=== PATIENT | male | born 1990 | race Caucasian/White ===

== ENCOUNTER → 2017-05-15 | Outpatient (CLI) | payer OTHER ==
[~2017-05-15] MED LIST: OXYC-57 PO
--- NOTE | 2017-05-15 15:19 | DIAGNOSTIC IMAGING REPORT ---
SINUS CT CT DOSE: 237.08 mGycm HISTORY: Sinusitis CHRONIC SINUSITIS TECHNIQUE: Multiaxial CT images of the paranasal sinuses were performed and reformatted in the coronal plane without the use of contrast. COMPARISON: None. FINDINGS: Mild mucosal thickening of the frontal sinuses. Moderate mucosal thickening of the right and to lesser extent left maxillary sinus. Soft tissue occlusion of the ostiomeatal units bilaterally. Sphenoid sinuses are clear. Minimal hypertrophic change of the nasal turbinates. No evidence for bony destructive process. The mastoid air cells are clear. The orbits are unremarkable. IMPRESSION: 1. Moderate mucosal thickening of the maxillary and ethmoid sinuses. 2. Soft tissue occlusion of the ostiomeatal units bilaterally. Electronically signed by: Kike Sage M.D. 05/15/2017 3:18 PM Dictated Date/Time: 05/15/2017 3:16 PM
== END | disposition home or self-care (01) ==
LOC: C.CTS 15:00
PROVIDERS: ATTEND Otolaryngology
DX: J32.9 Chronic sinusitis, unspecified (principal)

== ENCOUNTER → 2017-05-29 | Day surgery (SDC) | payer OTHER ==
[2017-05-27 09:01] VITALS: Ht 177.2 cm; Wt 72.7 kg
--- NOTE | 2017-05-27 09:32 | History and Physical: Surg Cnt ---
History & Physical Date May 27, 2017. Chief Complaint sinus infections History of Present Illness The patient is a 26 year old male with complaints of nasal obstruction and chronic sinusitis Additional History Hepatic Disease: No Endocrine Disorder: No Kidney Disease: No Hypertension: No Heart Disease: No Bleeding Tendencies: No Infectious Diseases: No Allergies Coded Allergies: Peanut (Verified Allergy, Mild, HIVES, 05/27/17) Home Medications No Active Prescriptions or Reported Meds Physical Examination Skin: warm/dry, no rash Eyes: normal inspection, EOMI, sclerae normal ENT: normal ENT inspection, pharynx normal Head: normocephalic, atraumatic Neck: supple, no adenopathy, trachea midline Respiratory/Chest: lungs clear, normal breath sounds, no respiratory distress Cardiovascular: regular rate, rhythm, no edema, no murmur Abdomen / GI: normal bowel sounds, non tender Back: normal inspection Extremities: normal inspection, normal range of motion Neurologic/Psych: no motor/sensory deficits, alert, normal reflexes, oriented x 3 Diagnosis deviated septum, chronic sinusitis Plan of Treatment septoplasty and endoscopic sinus surgery, explained surgery and risks
[~2017-05-29] VITALS: Ht 177.2 cm; Wt 72.7 kg
[~2017-05-29] MED LIST changes: +ATROPINE SULFATE 0.1 MG/ML 5ML SYR IV PRN; +BACITRACIN OINT 15 GM TUBE ONE; +CEFAZOLIN 1000MG/55 ML D5W IV SCH; +DEXAMETHASONE SOD INJ 4 MG/ML VIAL ONE; +EpHEDrine SULFATE INJ 50 MG/ML AMP IV PRN; +EpINEphrine INJ 1MG/ML AMP 1 MG/ML AMP ONE; +FENTANYL CITRATE INJ 50 MCG/1 ML 2 ML VIAL IV PRN; +FENTANYL CITRATE INJ 50 MCG/1 ML 2 ML VIAL ONE; +FLUMAZENIL 0.1 MG/1 ML 10 ML VIAL IV PRN; +GELATIN SPONGE 12-7MM ONE; +LACTATED RINGER'S 1000ML 1,000 ML IV SCH; +LIDO 2%/EPINEPHRINE 1:100000 20 ML VIAL INFIL ONE; +LIDOCAINE 4% MPF SOAK 5 ML = 1 DOSE TOP ONE; +LIDOCAINE HCL 2% 2 ML VIAL (20MG/ML) ONE; +MIDAZOLAM HCL 1 MG/ML 2ML VIAL ONE; +NALOXONE HCL 0.4 MG/1 ML VIAL/CARP IV PRN; +ONDANSETRON INJ 2 MG/ML 2 ML VIAL IV PRN; +ONDANSETRON INJ 2 MG/ML 2 ML VIAL ONE; +OXYCODONE/ACETAMINOPHEN 5-325 TAB PO PRN; +PROMETHAZINE HCL INJ 12.5 MG in SODIUM CHLORIDE 0.9% 50ML 50 ML IV PRN; +PROPOFOL IV EMULSION 10 MG/ML 20 ML VIAL IV ONE; +SODIUM CHLORIDE 0.9% 1000ML 1,000 ML IV SCH
--- NOTE | 2017-05-29 08:39 | History & Physical Bridge Note ---
H&P Re-Evaluation Bridge Note: I have examined the patient, reviewed the History & Physical and in the interval since the performance of the History & Physical I have noted the following changes of clinical significance: No changes noted
--- NOTE | 2017-05-29 08:40 | Discharge Instructions-SurgCtr ---
Discharge Instructions Date of Service May 29, 2017. Visit Reason for Visit: Chronic Sinusitis, Polyposis, Septal Deviation Discharge Discharge Diagnosis / Problem: ABDULKADIR Discharge Goals Goal(s): Improve function, Improve disease control Activity Recommendations Activity Limitations: resume your previous activity Anesthesia . Post Anesthesia Instructions: If you have had General Anesthesia or IV Sedation: * Do not drive today. * Resume driving when surgeon permits. * Do not make important decisions or sign legal documents today. * Call surgeon for: 1. Temperature elevations greater than 101 degrees F. 2. Uncontrollable pain. 3. Excessive bleeding. 4. Persistent nausea and vomiting. 5. Medication intolerance (nausea, vomiting or rash). * For nausea and vomiting use only clear liquids such as: tea, soda, bouillon until nausea subsides, then gradually increase diet as tolerated. * If you have any concerns or questions, call your surgeon's office. If physician is unavailable and it is an emergency, call 911 or go to the nearest emergency room. . Instructions / Follow-Up Instructions / Follow-Up ACTIVITY RECOMMENDATIONS: * Being up and around is good, but no strenuous activity, heavy lifting or physical exertion for one week. * Keep your head elevated 30 degrees when lying down or sleeping. * Do not blow your nose for 48 hours, sniff back instead. * Avoid hot showers. OVER THE COUNTER MEDICATIONS: * You may use Tylenol * Avoid aspirin or aspirin containing products, e.g. as they may increase bleeding. SPECIAL CARE INSTRUCTIONS: * Expect to have bloody drainage from your nose and/or down your throat for one to three days. Change drip pad as needed. * Begin irrigating your nose with saline solution today, at least six to ten times per day and sniff back to help remove old clots or crust. * You may experience nasal and facial congestion, pain and pressure, this is normal. * Please call with any significant and/or progressive pain, redness, swelling around the eyes, visual changes, fever of 101.5 degrees F, active bleeding or any problems or concerns. * If active bleeding occurs, spray the nose three times at one minute intervals with Afrin spray and call or cell phone: . If unable to reach the doctor, go to the nearest Emergency Department. Special Diet: * Avoid extremely hot fluids. FOLLOW UP VISIT: Follow-up Visit with Dr. Naqvi If not already scheduled, please call to schedule. Diet Recommendations Home Diet: no limitations Pending Studies Studies pending at discharge: no Medical Emergencies . Who to Call and When: Medical Emergencies: If at any time you feel your situation is an emergency, please call 911 immediately. . Non-Emergent Contact Non-Emergency issues call your: Primary Care Provider . . "Provider Documentation" section prepared by Sangeetha Naqvi. . [place] Drug Monitoring Program Search Results: no issues identified
--- NOTE | 2017-05-29 11:07 | [facility] Operative Report ---
Operative Report Operative Date May 29, 2017. Pre-Operative Diagnosis Chronic Sinusitis, Polyposis, Septal Deviation Post-Operative Diagnosis same as preop Procedure(s) Performed Septoplasty (Open), Endoscopic Sinus Surgery, Right and Left Frontal, Right and Left Maxillary, Sphenoid, Right and Left Total Ethmoidectomies Surgeon Dr. Naqvi Cross[place] Surgeon(s) none Estimated Blood Loss 50ml Findings polyps Specimens A: Left Ethmoid Polyp Anesthesia GET Complication(s) None Disposition Recovery Room / PACU Implants Propels Indications chronic sinusitis, polyps, septal deviation to left Description of Procedure After GET anesthesia, I decongested with topical xylo/epi, then injected xylocaine with epi., calibrated Brainlab, cannulated sphenoid, maxillary and left frontal sinus and dilated with 6 mm. Acclarent balloon. I left the wire in place as a marker and opened up left nasofrontal duct with shaver coupled with brainlab, then total ethmoidectomy and maxillary antrostomy and sphenoidotomy with shaver. Right frontal sinus was hypoplastic. I performed right total ethmoidectomy and maxillary antrostomy and sphenoidotomy with shaver with brainlab guidance. I placed mini Propel stent in left NF duct and regular stents in both ethmoid cavities. I used 15 blade and Roberto dissector and blakesly to remove bony and cartilaginous spur to left to straighten septum then packed with gelfoam. I attest to the content of the Intraoperative Record and any orders documented therein. Any exceptions are noted below.
--- NOTE | 2017-05-29 12:39 | Anesthesia Progress Nt - [facility] ---
Anesthesia Post Op Note Date & Time May 29, 2017 at 12:38 Vital Signs Pain Intensity: 0 Vital Signs Past 12 Hours Date Time Temp Pulse Resp B/P (MAP) Pulse Ox O2 Delivery O2 Flow Rate FiO2 05/29/17 12:06 36.6 81 16 114/73 (87) 97 Room Air 05/29/17 12:01 36.5 71 16 120/83 100 Room Air 05/29/17 11:58 132/78 05/29/17 11:55 81 18 05/29/17 11:55 79 18 100 05/29/17 11:51 116/93 05/29/17 11:50 74 12 100 05/29/17 11:50 78 12 05/29/17 11:46 127/65 05/29/17 11:45 78 15 100 05/29/17 11:45 78 15 05/29/17 11:41 111/93 05/29/17 11:40 74 6 05/29/17 11:40 76 6 100 05/29/17 11:36 117/79 05/29/17 11:35 85 16 05/29/17 11:35 80 16 100 05/29/17 11:31 117/72 05/29/17 11:30 76 19 05/29/17 11:30 77 19 100 05/29/17 11:29 77 11 05/29/17 11:29 79 11 100 05/29/17 11:26 110/70 05/29/17 11:24 76 14 05/29/17 11:24 76 14 100 05/29/17 11:21 119/65 05/29/17 11:20 124/71 05/29/17 11:19 36.7 80 12 124/71 100 Humidified Oxygen Mask 05/29/17 07:46 36.6 58 16 125/74 (91) 99 Room Air Notes Mental Status: alert / awake / arousable, participated in evaluation Pt Amnestic to Procedure: Yes Nausea / Vomiting: adequately controlled Pain: adequately controlled Airway Patency, RR, SpO2: stable & adequate BP & HR: stable & adequate Hydration State: stable & adequate Anesthetic Complications: no major complications apparent
[2017-05-29 12:41] VITALS: BP 120/78; PULSE 71; O2SAT 100
--- NOTE | 2017-05-29 15:50 | [facility] Operative Report ---
Operative Report Operative Date May 29, 2017. Pre-Operative Diagnosis Chronic Sinusitis, Polyposis, Septal Deviation Post-Operative Diagnosis same Procedure(s) Performed Right and left frontal, right and left total ethmoid, right and left sphenoid, and right and left maxillary sinus antrostomies, with endoscopic septoplasty. Surgeon Dr. Naqvi Jewel Hole Cornerer Surgeon(s) none Estimated Blood Loss 50ml Findings Polyposis Specimens A: Left Ethmoid Polyp Anesthesia GET Complication(s) None Disposition Recovery Room / PACU Indications 26-year-old male with significant recurrent and chronic sinusitis and polyposis. Description of Procedure The patient was brought to the operating room placed in the supine position. General endotracheal anesthesia was induced. The brain lab device was calibrated and used for the entire procedure. He was prepped and draped in the usual sterile manner. Topical cottonoids were used with 4 mL of 4% Xylocaine with 1 mL of epinephrine. Injection of 2% Xylocaine with 1-100,000 strength epinephrine was also used. The right sphenoid was cannulated with the guidewire with [employer] computer guidance and dilated using the 6 mm balloon as well as the left sphenoid sinus. The right maxillary sinus was cannulated with the guidewire and dilated using the 6 mm balloon as was the left maxillary sinus. The left nasal frontal duct was cannulated with the guidewire with [employer] computer guidance and dilated using the 6 mm balloon. The guidewire was left in place as a marker as the catheter was withdrawn. Frontal sinusotomy was performed by removing the anterior wall and then the posterior wall vac are nasi cell following the guidewire superiorly opening up the nasal frontal duct leaving the mucosa in the duct intact. At this point total ethmoidectomy was performed with the shaver couple with the brain lab device. The bullae ethmoidalis was opened the ground lamella was penetrated and the posterior most ethmoid air cell was identified. The skull base and lamina papyracea were identified with the brain lab device and followed anteriorly exonerating all the posterior and then all the anterior ethmoid air cells up to the previously dilated nasal frontal duct. The sphenoid was opened by removing polypoid mucosa at the inferior border of the superior turbinate and at the anterior face of the sphenoid. The maxillary sinus was opened by removing polyps at its natural ostia which is the posterior wall at the anterior border of the bullae ethmoidalis. The right frontal sinus was hypoplastic. The right total ethmoidectomy maxillary sinus antrostomy and sphenoidotomy was performed in a similar manner propel stents were placed with a mini stent in the left nasal frontal duct and to regular stents and ethmoid area. Endoscopic septoplasty was performed removing a large bony and cartilaginous spur projecting to the left inferiorly. The incision was made over the spur using the 15 blade. Superior and and inferior tunnels were elevated. Posterior tunnels were elevated after isolating the bony spur posteriorly. The bony and cartilaginous spurs were removed using the Comal dissector and also using the Stephanie forceps. The mucoperichondrial was packed back into position using a single piece of Gelfoam on the left side. The patient tolerated the procedure well and was taken to the recovery area in satisfactory condition. I attest to the content of the Intraoperative Record and any orders documented therein. Any exceptions are noted below.
== END | disposition home or self-care (01) ==
LOC: X.SURG 07:41
PROVIDERS: ATTEND Otolaryngology
DX: J32.9 Chronic sinusitis, unspecified (principal); J34.2 Deviated nasal septum; J33.9 Nasal polyp, unspecified